=== PATIENT | male | born 1955 | race Caucasian/White ===

== ENCOUNTER 2021-05-26 13:50 | Inpatient (IN) | payer MEDICARE, MEDICAID ==
[~2021-05-26] VITALS: Ht 160 cm; Wt 82.6 kg
[~2021-05-26 13:50] MED LIST: CHOL400D7 MT; FERR220S6 MT; FOLI0.4T6 MT; IPRA3AMP31 NEB; LEVO125T8 PO; OMEP20TA2 PO
[2021-05-26] MEDS ORDERED: VANCOMYCIN 1G PREMIX 200 ML IV ONE (14:15)
[2021-05-26] MEDS ORDERED: SODIUM CHLORIDE 0.9% 1000ML BAG (SEPSIS BOLUS) IV ONE (14:15)
[2021-05-26] MEDS ORDERED: PIPERACILLIN/TAZ 3.375G PREMIX 50 ML IV ONE (14:15)
[2021-05-26] MEDS ORDERED: VANCOMYCIN 1GM PMX (XELLIA) 200 ML IV ONE (14:22)
[2021-05-26 14:41] LABS: BASOPHILS % 0.5 % (0.0-2.0); EOSINOPHILS % 0.1 % (0.0-5.0); LYMPHOCYTES % 10.2 % (20.0-50.0); MEAN CORPUSCULAR HEMOGLOBIN 33.1 pg (28.0-32.0); MEAN CORPUSCULAR VOLUME 96.4 fL (80.0-94.0); MEAN PLATELET VOLUME 8.3 fl (7.4-10.4); MONOCYTES % 12.5 % (2.0-8.0); NEUTROPHILS % 76.7 % (40.0-76.0); PLATELET 224 x1000/uL (130-400); RED BLOOD CELL COUNT 3.32 mill/uL (4.7-6.1)
[2021-05-26 14:52] LABS: CHLORIDE 100 mEq/L (98-107)
[2021-05-26 14:54] LABS: BG BASE EXCESS 10.3 mmol/L (-2.0-2.0); BG CARBOXYHEMOGLOBIN 0.3 % (0.5-1.5); BG DEOXYHEMOGLOBIN 1.7 % (0.0-5.0); BG FRACTION INSPIRED OXYGEN 44; BG METHEMOGLOBIN 0.2 % (0.0-1.5); BG OXYGEN SATURATION 98.3 % (92.0-98.5); BG OXYHEMOGLOBIN 97.8 % (94.0-97.0); BG PCO2 53.6 mmHg (35.0-45.0); BG PH 7.445 (7.350-7.450); BG SAMPLE SITE RIGHT RADIAL; BG TOTAL HEMOGLOBIN 11.4 g/dL (12.0-18.0); BG VENT MODE COOL AEROSOL
[2021-05-26 15:00] LABS: BETA HYDROXYBUTYRATE 0.1 mMol/L (0.0-0.3)
[2021-05-26 16:01] LABS: CLARITY URINE CLEAR (CLEAR); COLOR URINE YELLOW (YELLOW); KETONES URINE NEGATIVE (NEGATIVE); LEUKOCYTE ESTERASE URINE 1+ (NEGATIVE); NITRITE URINE POSITIVE (NEGATIVE); OCCULT BLOOD URINE TRACE (NEGATIVE); PH URINE 5.5 (4.5-8.0); PROTEIN URINE 1+ (NEGATIVE); SPECIFIC GRAVITY URINE 1.019 (1.005-1.030); UROBILINOGEN URINE 0.2 E.U./dL (0.2-1.0)
[2021-05-26] MEDS ORDERED: ACETAMINOPHEN 325MG TABLET GT ONE (16:30)
[2021-05-26] MEDS ORDERED: INSULIN GLARGINE UD 100 UNITS/ML SYR SUBCUT SCH (22:00)
[2021-05-26] MEDS: SODIUM CHLORIDE 0.9% 1,000 ML IV SCH (22:15)
[2021-05-26] MEDS ORDERED: PIPERACILLIN/TAZ 3.375G PREMIX 50 ML IV SCH (22:15)
[2021-05-26] MEDS ORDERED: VANCOMYCIN 1G PREMIX 200 ML IV SCH (22:15)
[2021-05-26] MEDS ORDERED: DIPHENHYDRAMINE 50MG/ML VIAL IV PRN (22:15)
[2021-05-26] MEDS ORDERED: ACETAMINOPHEN 650MG/20.3ML UDC GT PRN (22:15)
[2021-05-26] MEDS ORDERED: IPRATROPIUM/ALBUTEROL 0.5-3(2.5)MG/3ML NEB NEB PRN (22:15)
[2021-05-26] MEDS ORDERED: DEXTROSE 50% WATER 50ML SYRINGE IV PRN (22:15)
[2021-05-26] MEDS ORDERED: ONDANSETRON HCL 4MG/2ML INJ IV PRN (22:15)
[2021-05-26] MEDS ORDERED: LORAZEPAM 2MG/ML CPJ IV PRN (22:15)
[2021-05-26] MEDS ORDERED: CLONIDINE 0.1MG TABLET GT PRN (22:15)
[2021-05-26 23:18] VITALS: BP 111/63
[2021-05-26] MEDS ORDERED: PIPERACILLIN/TAZOBACTAM 3.375G in DEXT 5% WATER 50ML IV SCH (23:30)
[2021-05-27] VITALS (12 sets, daily range): BP systolic 95–148; BP diastolic 47–86
[2021-05-27] MEDS: ENOXAPARIN 40MG/0.4ML SYR SUBCUT SCH ×2 (00:12→21:05)
[2021-05-27] MEDS: PIPERACILLIN/TAZOBACTAM 3.375G in DEXT 5% WATER 50ML IV SCH ×3 (00:13→13:39)
[2021-05-27] MEDS ORDERED: VANCOMYCIN 750MG PREMIX 150 ML IV SCH ×3 (03:00→18:00)
[2021-05-27] MEDS: INSULIN LISPRO 100 UNITS/ML SUBCUT SCH ×4 (07:44→23:45)
[2021-05-27] MEDS: BLOOD SUGAR DIAGNOSTIC STRIP TEST SCH ×4 (07:44→23:45)
[2021-05-27] MEDS: LEVETIRACETAM 500MG/5ML CUP GT SCH ×2 (08:06→21:05)
[2021-05-27] MEDS: LEVOTHYROXINE SODIUM 125MCG TABLET GT SCH (08:06)
[2021-05-27] MEDS: ACETAMINOPHEN 650MG/20.3ML UDC GT PRN ×2 (16:24→16:57)
[2021-05-27] MEDS: SODIUM CHLORIDE 0.9% 1,000 ML IV SCH (17:52)
[2021-05-27] MEDS: CEFTRIAXONE 1,000 MG in DEXTROSE 5% WATER 50 ML IV SCH (19:50)
[2021-05-27 21:22] LABS: CREATINE KINASE 22 IU/L (39-308)
[2021-05-27 21:24] LABS: CREATINE KINASE MB FRACTION < 1.0 ng/mL (0.5-3.6)
[2021-05-27] MEDS: INSULIN GLARGINE UD 100 UNITS/ML SYR SUBCUT SCH (23:51)
[2021-05-28] VITALS (12 sets, daily range): BP systolic 105–150; BP diastolic 51–93
[2021-05-28 03:19] LABS: CHLORIDE 109 mEq/L (98-107)
[2021-05-28] MEDS: INSULIN LISPRO 100 UNITS/ML SUBCUT SCH ×3 (06:00→17:01)
[2021-05-28] MEDS: BLOOD SUGAR DIAGNOSTIC STRIP TEST SCH ×3 (06:23→17:01)
[2021-05-28] MEDS: IPRATROPIUM/ALBUTEROL 0.5-3(2.5)MG/3ML NEB HHN SCH ×3 (07:45→20:38)
[2021-05-28] MEDS: LEVOTHYROXINE SODIUM 125MCG TABLET GT SCH (08:14)
[2021-05-28] MEDS: LEVETIRACETAM 500MG/5ML CUP GT SCH ×2 (08:15→20:57)
[2021-05-28] MEDS: SODIUM CHLORIDE 0.9% 1,000 ML IV SCH (08:46)
[2021-05-28] MEDS: ACETAMINOPHEN 650MG/20.3ML UDC GT PRN (12:03)
[2021-05-28] MEDS: FUROSEMIDE 20MG/2ML VIAL IVP SCH (16:19)
[2021-05-28 17:52] LABS: CREATINE KINASE 24 IU/L (39-308)
[2021-05-28] MEDS: CEFTRIAXONE 1,000 MG in DEXTROSE 5% WATER 50 ML IV SCH (20:54)
[2021-05-28] MEDS: INSULIN GLARGINE UD 100 UNITS/ML SYR SUBCUT SCH (21:57)
[2021-05-28] MEDS: ENOXAPARIN 40MG/0.4ML SYR SUBCUT SCH (21:58)
[2021-05-29] VITALS (9 sets, daily range): BP systolic 110–160; BP diastolic 61–107
[2021-05-29] MEDS: BLOOD SUGAR DIAGNOSTIC STRIP TEST SCH ×3 (00:40→12:18)
[2021-05-29] MEDS: IPRATROPIUM/ALBUTEROL 0.5-3(2.5)MG/3ML NEB HHN SCH ×3 (00:45→14:40)
[2021-05-29] MEDS: INSULIN LISPRO 100 UNITS/ML SUBCUT SCH ×3 (06:00→12:00)
[2021-05-29] MEDS: FUROSEMIDE 20MG/2ML VIAL IVP SCH (08:42)
[2021-05-29] MEDS: LEVOTHYROXINE SODIUM 125MCG TABLET GT SCH (08:42)
[2021-05-29] MEDS: LEVETIRACETAM 500MG/5ML CUP GT SCH (08:42)
[2021-05-29] MEDS ORDERED: SPIRONOLACTONE 25MG TABLET PEG SCH (14:00)
[2021-05-29] MEDS ORDERED: CARVEDILOL 6.25 MG TABLET PEG SCH (21:00)
== END 2021-05-29 16:30 | disposition home or self-care (01) | DRG 871 ==
LOC: ER 13:50 → 5EST 18:11 → EDBEDREQ 18:15 → EDBEDREQTM 18:15 → ENRESERV 21:17
PROVIDERS: ADMIT Internal Medicine; ATTEND Internal Medicine
DX: A41.9 Sepsis, unspecified organism (principal); G93.41 Metabolic encephalopathy; J18.9 Pneumonia, unspecified organism; J96.20 Acute and chronic respiratory failure, unspecified whether with hypoxia or hypercapnia; E44.0 Moderate protein-calorie malnutrition; I50.42 Chronic combined systolic (congestive) and diastolic (congestive) heart failure; N39.0 Urinary tract infection, site not specified; I42.9 Cardiomyopathy, unspecified; E03.9 Hypothyroidism, unspecified; E11.65 Type 2 diabetes mellitus with hyperglycemia; G40.909 Epilepsy, unspecified, not intractable, without status epilepticus; D53.9 Nutritional anemia, unspecified; Z20.822 Contact with and (suspected) exposure to COVID-19; I11.0 Hypertensive heart disease with heart failure; I08.3 Combined rheumatic disorders of mitral, aortic and tricuspid valves; I27.20 Pulmonary hypertension, unspecified; Q90.9 Down syndrome, unspecified; Z93.0 Tracheostomy status; Z93.1 Gastrostomy status; Z79.899 Other long term (current) drug therapy
CPT/HCPCS: 36415; 36600; 71045; 76604; 80048; 80053; 80202; 81003; 82010; 82375; 82550; 82553; 82805; 82962; 83036; 83605; 83735; 83880; 83930; 84145; 84443; 84484; 85025; 87077; 87186; 87426; 93005; 93306; 93970; 99291; J0696; J1650; J1815; J1940; J2543; J3370; J7030; J7060; A4315